=== PATIENT | male | born 2005 ===

== ENCOUNTER 2023-07-31 01:45 | Emergency (ER) | payer SELFPAY ==
[~2023-07-31] VITALS: Ht 180.3 cm; Wt 55.5 kg
[2023-07-31 01:46] VITALS: BP 142/86; TEMP 97.6; O2SAT 99
== END 2023-07-31 02:36 | disposition left against medical advice (07) ==
LOC: M ED 01:45
DX: Z53.21 Procedure and treatment not carried out due to patient leaving prior to being seen by health care provider (principal)